=== PATIENT | male | born 1985 | race African-American/Black ===

== ENCOUNTER 2025-05-21 00:25 | Emergency (ER) | payer SELFPAY ==
[2025-05-21 00:53] VITALS: BP 96/62; PULSE 64; RESP 20; TEMP 36.8; O2SAT 98
[2025-05-21 03:20] VITALS: BP 124/80; PULSE 49; RESP 18; TEMP 36.6; O2SAT 97
--- NOTE | 2025-05-21 04:19 | ED.GENADULT ---
HPI - General Adult General Chief complaint: Skin/Abscess/Foreign Body Stated complaint: all over skin infection Time Seen by Provider: 05/21/25 04:11 History of Present Illness HPI narrative: Patient is a 39-year-old male who presents emergency department this morning complaining of a rash all over his body. States that he was diagnosed with folliculitis back in 2011 and was prescribed a medication that worked really well for him. States that this flare of folliculitis started approximately 2 weeks ago and he has seen his primary care physician, he has been on doxycycline and Bactrim and states that neither of them are helping and he is requesting the same medication he was prescribed in 2012. Per chart review, it was noted that patient was prescribed clindamycin in 2012 for his folliculitis. Patient is also HIV positive otherwise he denies any additional symptoms or concerns. Related Data Allergies Allergy/AdvReac Type Severity Reaction Status Date / Time No Known Allergies Allergy Mild Verified 05/21/25 00:56 Review of Systems Review of Systems: All systems are reviewed and are negative unless stated otherwise in the HPI. Exam Narrative: General: Alert, awake, afebrile, in no acute distress. HEENT: PERRL, no rhinorrhea, no post nasal drip, oropharynx clear. Neck: Trachea midline, no JVD, no lymphadenopathy. Cardiovascular: Regular rate and rhythm, no murmurs, rubs or gallops, no peripheral edema. Respiratory: Clear to auscultation bilaterally, no tachypnea, no wheezing, no rhonchi, no rubs, no respiratory distress. Abdomen: Soft, nontender, nondistended, no rebound, no guarding, no peritoneal signs. Musculoskeletal: No joint swelling or deformity, normal muscle tone. Skin: Nonspecific small bumps resembling folliculitis/ingrown hair follicles throughout patient has bilateral upper extremity, no evidence of cellulitis or infection. Psychiatric: Alert and oriented, normal behavior and judgment for situation. Neurological: Alert and oriented to person, place, and time. Follows all commands. No focal deficits, speech is clear and fluent. Course Vital Signs Vital signs: Vital Signs Temperature 98.2 F 05/21/25 00:53 Pulse Rate 64 05/21/25 00:53 Respiratory Rate 20 05/21/25 00:53 Blood Pressure 96/62 L 05/21/25 00:53 Pulse Oximetry 98 05/21/25 00:53 Oxygen Delivery Room Air 05/21/25 00:53 Temperature 97.8 F 05/21/25 03:20 Pulse Rate 49 L 05/21/25 03:20 Respiratory Rate 18 05/21/25 03:20 Blood Pressure 124/80 05/21/25 03:20 Pulse Oximetry 97 05/21/25 03:20 Oxygen Delivery Room Air 05/21/25 00:53 Medical Decision Making MDM Narrative Medical decision making narrative: The patient was evaluated by myself in the emergency department. History is obtained from patient who is an independent historian and physical exam was performed. External medical records were reviewed at this time. Patient is not want any workup just wants to be prescribed the same antibiotic he got in 2012. Differential diagnosis considerations include nonspecific rash, cellulitis, abscess, folliculitis. Comorbidities impacting this visit include none. I have evaluated and discussed social determinants of health with the patient that could potentially impact subsequent diagnosis and treatment plans. On repeat assessment of the patient, reevaluation revealed that the patient is doing well and is in no acute distress. Patient symptoms have remained stable since he arrived to our emergency department. Repeat vital signs were all reviewed and noted to be stable. Differential diagnosis and treatment plan were discussed with the patient at bedside. Patient agrees with discussion and after shared medical decision making agrees with discharge. All questions were answered to the patient's satisfaction. Patient will follow up with his PCP in 3-5 days. Patient was provided with strict return precautions and instructed to return to the emergency department if any new or worsening symptoms develop. The patient was discharged in stable condition. Vital Signs Vital Signs: Vital Signs Temperature 98.2 F 05/21/25 00:53 Pulse Rate 64 05/21/25 00:53 Respiratory Rate 20 05/21/25 00:53 Blood Pressure 96/62 L 05/21/25 00:53 Pulse Oximetry 98 05/21/25 00:53 Oxygen Delivery Room Air 05/21/25 00:53 Temperature 97.8 F 05/21/25 03:20 Pulse Rate 49 L 05/21/25 03:20 Respiratory Rate 18 05/21/25 03:20 Blood Pressure 124/80 05/21/25 03:20 Pulse Oximetry 97 05/21/25 03:20 Oxygen Delivery Room Air 05/21/25 00:53 Discharge Plan Discharge Clinical Impression: Folliculitis Patient Disposition: Home Condition: Improved Instructions: Antibiotic Form, Folliculitis (ED) Additional Instructions: Please follow-up with your family doctor within the next 3-5 days. Return to emergency department for new or worsening symptoms develop. Patient Language: French Prescriptions: New clindamycin HCl [Cleocin HCl] 150 mg capsule 450 mg PO Q8H 5 Days Qty: 45 0RF Follow-up/Referrals: PHYSICIAN,ROOM SERVICE SUPERVISOR [Primary Care Provider, Internal Medicine] Samina Hutton DO [Physician, Family Practice] - 3 Days Time of Disposition: 04:23
--- OUTSIDE RECORDS SUMMARY | 2025-05-21 04:39 | XMS_ITS | Encounter Summary ---
Author Organization [email or web address] Address [address] [place] [address] Care Team Providers Care Apparel Trimmings Sales Representative Name Role Phone Lester Robertson DO Primary Care Provider [phone]- [phone] Encounter Details Date Type Department Care Team (Late st Contact Info) Description 04/16/2017 Correspondence [facility] Radiology [address] [place] [address] [phone] Radiology, Provider MRI SAFETY SHEET AND COMPATIBILITY FORM Social History Tobacco Use Types Packs/Day Years Used Date Smoking Tobacco: Some Days Cigars Smokeless Tobacco: Never Comments:marajuana on and of f using cigars Alcohol Use Standard Drinks/Week Comments No 0 (1 standard drink = 0.6 oz pur e alcohol) Sex and Gender Information Value Date Recorded Sex Assigned at Not on file Legal Sex Male 4:45 AM CDT Gender Identity Not on file Sexual Orientation Not on file 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
--- OUTSIDE RECORDS SUMMARY | 2025-05-21 04:39 | XMS_ITS | Encounter Summary ---
Author Organization [facility] Address [address] [place] [address] Care Team Providers Care Research Executive Name Role Phone Lester Robertson DO Primary Care Provider [phone]- [phone] Encounter Details Date Type Department Care Team (Late st Contact Info) Description 06/02/2018 [facility] SITE MARKING DIAGRAM Social History Tobacco Use Types Packs/Day Years Used Date Smoking Tobacco: Some Days Cigars Smokeless Tobacco: Never Comments:no tobacco use, onl y marajuana on and off using cigars, Alcohol Use Standard Drinks/Week Comments Yes 1 (1 standard drink = 0.6 oz pur e alcohol) Sex and Gender Information Value Date Recorded Sex Assigned at Not on file Legal Sex Male 4:45 AM CDT Gender Identity Not on file Sexual Orientation Not on file 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 assistant Not on file Not on f ile Not on file documented as of this encounter Plan of Treatment Not on file documented as of this encounter Visit Diagnoses Not on filedocumented in this encounter Additional Health Concerns Infection Onset Date 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
--- OUTSIDE RECORDS SUMMARY | 2025-05-21 04:39 | XMS_ITS | Encounter Summary ---
Author Organization [facility] Address [address] [place] [address] Care Team Providers Care Japanese Tutor Name Role Phone iHralkarine Lester Karen US Primary Care Provider +1- [phone] Encounter Details Date Type Department Care Team (Late st Contact Info) Description 05/11/2025 Results [facility]Up [facility] [address] [facility]. [place], [place] [id number] Paul Batres MD [address] [place] [address] Social History Tobacco Use Types Packs/Day Years Used Date Smoking Tobacco: Some Days Cigars Smokeless Tobacco: Never Comments:no tobacco use, onl y marajuana on and off using cigars, Alcohol Use Standard Drinks/Week Comments Yes 1 (1 standard drink = 0.6 oz pur e alcohol) Humiliation, Afraid, Rape, and Kick questionnair e Answer Date Recorded Within the last year, have y ou been afraid of your partner or ex-partner? No 09/07/2024 Within the last year, have y ou been humiliated or emotionally abused in other ways by your partner or ex-partner? No Within the last year, have y ou been kicked, hit, slapped, or otherwise physically hurt by your partner or ex-partner? No 09/07/2024 Within the last year, have y ou been raped or forced to have any kind of sexual activity by your partner or ex-partner? 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
--- OUTSIDE RECORDS SUMMARY | 2025-05-21 04:39 | XMS_ITS | Clinical Summary ---
Author Organization [facility] Address [address] [place] [id number] Care Team Providers Care Laundry Room Attendant Name Role Phone Pcp, No Primary Care Provider Unavailabl e Allergies No known active allergies Medications emtricitab-ril pivirine-tenof ov (COMPLERA) 200-25-300 mg Take 1 tablet by mouth once daily. 6 Active acetaminophen (TYLENOL) 325 mg tabletIndicati ons:Perirectal abscess Take 1-2 tablets by mouth every 4 hours if needed (For mild pain.). Max acetaminophen dose: 4000mg in 24 hrs. 30 tablet 03/19/2016 1:41 PM CDT 6 Active doxycycline 100 mg tabletIndicati ons:Folliculit is Take 1 Tablet (100 mg) by mouth two times daily before meals. 14 Tablet 5 Active triamcinolone (ARISTOCORT; KENALOG) 0.1 % creamIndicatio ns:Rash Apply topically to affected area(s) three times daily for 7 days. 80 g 5 025 Active Problems Problem Noted Date Diagnosed Date Perianal abscess 06/02/2018 Overview (02/27/2020): Added automatically from request for surgery [id number] Hx of syphilis 08/08/2016 Overview (02/27/2020): 07/21/16 Titer 1:2, Treponema screen positive 08/08/16 Treated: 2.4mu Bicillin x 1 06/26/17 TPPA positive 02/14/20 Titer 1:4 Esperanza-rectal abscesses 03/09/2016 Overview (03/09/2016): Two on left. 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 03/2015: HRA with chemical destruction of internal lesions. 11/2015: Anal Pap showed ASCUS Recommend annual Anal pap. If progression from LGSIL, reschedule HRA. Human immunodeficiency virus (HIV) infection Encounters Date Type Department Care Team Description 05/01/2025 4:44 AM CDT - 05/01/2025 5:29 AM CDT Emergency [facility] [address] [place] [address] Lauren Moore MD Rash (Primary Dx) Discharge Disposition: Home Self Care 05/01/2025 Travel 04/11/2025 11:02 PM CDT - 04/11/2025 11:38 PM CDT Emergency [facility] [address] [place] [address] Kiel Davis DO Folliculitis (Primary Dx) Discharge Disposition: Home Self Care 04/11/2025 Travel from Last 3 Months Family History Medical History Relation Name Comments Cancer-breast Mother Relation Name Status Comments Mother Social History Tobacco Use Types Packs/Day Years Used Date Smoking Tobacco: Never Smokeless Tobacco: Never Alcohol Use Standard Drinks/Week Comments No 0 (1 standard drink = 0.6 oz pur e alcohol) Interpersonal Safety Answer Date Record ed Are you being hit, kicked, p ushed or yelled at (see row info)? No 05/01/2025 Interpersonal Safety Abuse 12 - 18 Not on file 05/01/2025 Interpersonal Safety Ambulatory Vulnerability No t on file 05/01/2025 Sex and Gender Information Value Date Recorded Sex Assigned at Not on file Legal Sex Male 6:21 AM FRENCH PASTRY COOK Gender Identity Not on file Sexual Orientation Not on file Last Filed Vital Signs Vital Sign Reading Time Taken Comments Blood Pressure 146/92 05/01/2025 4:56 AM CDT Pulse 52 05/01/2025 4:48 AM CDT Temperature 37.3 C (99.1 F) 05/01/2025 4:48 AM CDT Respiratory Rate 14 05/01/2025 4:48 AM CDT Oxygen Saturation 99% 05/01/2025 4:48 AM CDT Inhaled Oxygen Concentration - - Weight 90.7 kg (200 lb) 05/01/2025 4:48 AM CDT Height 170.2 cm (5' 7) 05/01/2025 4:48 AM CDT Body Mass Index 31.32 05/01/2025 4:48 AM CDT Plan of Treatment Health Maintenance Due Date Last Done Comments Tetanus booster 1997 Depression screening for age 12+ 1998 HIV for age 15-65 2001 BMI (ht and wt on same day) for age 18+ 2004 Hepatitis C screening for ag e 18-79 2004 Hepatitis B series for 19+ ( 1 of 3 - 19+ 3-dose series) 2005 HPV series for age 9-45 (1 - 3-dose SCDM series) 2013 Lipids for age 35-44 2021 COVID-19 vaccine series ( - season) 2025 Influenza Vaccine (#1) 2025 RSV vaccine for adults or (1 - 1-dose 75+ series) 2061 Pneumococcal series for age 6-49 Aged Out No longer eligible based on patient's age to complete this topic Procedures Procedure Name Priority Date/Time Associated Diagnosis Comments MPOX(ORTHOPOXVIRUS) , PCR (NON BLOOD) STAT 04/11/2025 11:27 PM CDT from Last 3 Months Results * MPOX(ORTHOPOXVIRUS), PCR (NON BLOOD) (04/11/2025 11:27 PM CDT) Orthopoxvirus DNA Not Detected Not Detected 04/15/2025 10:07 PM CDT [facility] Comment:Non-variola Orthopox virus DNA not detected by real-time PCR. Swab LESION SPECIMEN / Unknown Non-Blood / Unknown 04/11/2025 11:27 PM CDT 04/11/2025 11:30 PM CDT Narrative [facility] - 04/15/2025 10:07 PM CDT Performed at: 01 - [facility] [address] [place] [address] [id number] Cross Roller: Ronal Sanabria MD, Phone: [phone] us Kiel Davis DO SEND OUTS Final Resul t [facility] ([facility]) [address] [place] [id number], from Last 3 Months Advance Directives * Full Code (Latest Code Status on File) Date Activated Date Inactivated Comments 03/09/2016 8:55 AM 03/12/2016 7:05 PM * Full Code Date Activated Date Inactivated Comments 03/09/2016 8:54 AM 03/09/2016 8:55 AM * Full Code Date Activated Date Inactivated Comments 03/09/2016 6:04 AM 03/09/2016 8:54 AM Care Teams Laundry Room Attendant Relationship Specialty Start Date End Date Pcp, No . PCP - General 01/16/21
--- OUTSIDE RECORDS SUMMARY | 2025-05-21 04:39 | XMS_ITS | Encounter Summary ---
Author Organization [facility] Address [address] [place] [address] Care Team Providers Care Core Extruder Name Role Phone Lester Robertson DO Primary Care Provider +1- [phone] Encounter Details Date Type Department Care Team (Late st Contact Info) Description 06/02/2018 Consent for Procedure/Treatme nt [facility] INFORMED CONSENT RECORD Social History Tobacco Use Types Packs/Day Years Used Date Smoking Tobacco: Some Days Cigars Smokeless Tobacco: Never Comments:no tobacco use, onl y marajuana on and off using cigars, Alcohol Use Standard Drinks/Week Comments No 0 (1 standard drink = 0.6 oz pur e alcohol) Sex and Gender Information Value Date Recorded Sex Assigned at Not on file Legal Sex Male 4:45 AM CDT Gender Identity Not on file Sexual Orientation Not on file 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
--- OUTSIDE RECORDS SUMMARY | 2025-05-21 04:39 | XMS_ITS | Clinical Summary ---
Author Organization [facility] Address [address] [place] [address] Care Team Providers Care Paper Reeler Name Role Phone DanyLester olmedo Karen US Primary Care Provider [phone] Source Comments You are receiving this document as you are listed as the primary care provider,follow-up provider, or the patient has been referred to you for consultation.This is in compliance with the Medicare andMedicaid EHR Incentive Program,which states Providers who transition their patient to another setting of careor provider of care or refers their patient to another provider of care shouldprovide summary care record for each transition of care or referral. [facility] Allergies No known active allergies Medications medical cannabis patient certifiedIndic ations:Medical marijuana use Take as instructed .. Active emtricitab-ril pivir-tenofov AF (ODEFSEY) 200-25-25 MG tablet TAKE 1 TABLET BY MOUTH EVERY DAY 90 Tablet 1 12/23/19 25 Active doxycycline hyclate (VIBRA-TABS) 100 MG tablet Take 1 Tablet (100 mg) by mouth two times a day. Active amoxicillin (AMOXIL) 500 MG capsule Take 1 Capsule (500 mg) by mouth three times a day. 04/20/20 25 Active sulfamethoxazo le-trimethopri m (BACTRIM DS) 800-160 MG tabletIndicati ons:Folliculit is Take 1 Tablet by mouth two times a day for 14 days. 28 Tablet 05/18/20 25 025 Discontinued sulfamethoxazo le-trimethopri m (BACTRIM DS) 800-160 MG tabletIndicati ons:Folliculit is Take 1 Tablet by mouth two times a day for 14 days. 28 Tablet 05/18/20 25 025 Discontinued Hospital, Clinic, or Other Facility Administered Medication Ordered Dose Route Frequency Start Date End Date Status fluticasone propionate (FLONASE) 50 MCG/ACT nasal spray 2 SprayIndications:Post- nasal drip 2 [place] Both Nostril DAILY 11/12/2022 Active Active Problems Problem Noted Date Diagnosed Date Perianal abscess 06/02/2018 Overview (06/02/2018): Added automatically from request for surgery [id number] CAREPLAN: HIV 10/23/2016 Overview (10/11/2024): If you have any questions or concerns please contact: Molder Feeder: LUCITA Silva MA PCP: Estela Goodrich PA-C ID Provider: Dr. Marbin MD [facility] CLIENT NAME: Yolanda Israel SERVICE PLAN PERIOD: September 2024 - March 2025 - September 2025 Care Coordination (Community Resources, Specialists, Home Health Agency, Caregiver, Supply Vendor, Molder Feeder) Contact Name KRYSTIN Obtained? Phone Number Role in Care Krystle LANDRUM MA Internal [phone] Circulation Representative Program 10/11/2024 Community Service provider [place] 10/11/2024 Pharmacy Saulo Israel 10/11/2024 Emergency Contact/Uncle - NOT AWARE OF STATUS Identify All Barriers/Needs below: [] [] Living Situation [] Mental Health [] Chemical Health [x] Health Insurance/Benefits [] Transportation [] Health Literacy/Medication adherence [] Incarceration [] HIV Disease Progression/Declining health [] Cultural/Language/literacy barriers [] New to city/state [] Newly diagnosed/HIV Knowledge/Sexual Health [] Nutritional Needs [] Re-engaging into Medical Care/Adherence to Appointments [x] Medical Care [] Financial/Legal Issues [] Domestic violence [] Support- emotional/social [] Housing [] Immigration needs [] Education/Employment [] Other: Barrier/Need: Process/steps to resolve the identified issues: Timeframe to accomplish Person(s) responsible for taking action. Outcome of the actions taken and/or Completion Date Medical Care To maintain a viral load of <30 and CD4 Count over 200 by taking medications daily as prescribed; along with attending all medical appointments as scheduled. nursing support worker will assist patient with reminder calls of appointments, making sure patient has transportation to appointment and scheduling follow up appointments to make sure patient is staying in medical care. Ongoing; Patient and Molder Feeder Patient reports no concerns at this time. Will repeat labs in a month Health Insurance/Benefits To maintain health insurance. nursing support worker and patient will utilize benefits counseling as needed for any insurance counseling questions. Ongoing; Patient and Molder Feeder Patient reports no concerns at this time. Employment To obtain/maintain stable employment Patient Patient reports no concerns at this time. I have reviewed the needs and actions/goals discussed today with my service provider. Client Signature Date Collections Director Signature Date The adoption social worker will meet with the patient in 6 months to check in on progress of the goals. ----- Reassessment Review: I have reviewed the needs and actions/goals discussed today with my service provider. 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 HRA 03/30/2015 with chemical destruction of internal lesions. Anal Pap 11/30/15: ASCUS, Recommend annual Anal pap. If progression from LGSIL, reschedule HRA. HIV disease 03/30/2014 Overview (06/07/2015): Epic Encounters Date Type Department Care Team Description 05/18/2025 9:20 AM CDT Telemedicine [address] [address] Lester Robertson, Folliculitis (Primary Dx) 05/12/2025 Social Work Infectious Disease at [address] [place] [address] Varun Solano LSW 05/11/2025 10:00 AM CDT Nursing Visit [facility] [place] [address] [facility] Hand Surgery [address] [place] [address]. [place] [address] Encounter for postoperative wound check (Primary Dx) 05/11/2025 Results Follow-Up [place] [address] [facility] Surgery [address] [place] [address]. [place] [address] Paul Batres MD 05/04/2025 Social Work Infectious Disease at [address] [place] [address] Varun Solano LSW 05/02/2025 1:00 PM CDT Office Visit [facility] Hand Surgery [address] [place] [address] Paul Batres MD Tick bite of left knee, initial encounter (Primary Dx) 05/02/2025 Telephone Infectious Disease at [facility] [address] [place] [address] Lester Robertson, DO SKIN PROBLEM 05/01/2025 8:30 AM CDT Ancillary Procedure [facility] Ultrasound [address] [place] [address] Paul Batres MD Tick bite of left knee, initial encounter 05/01/2025 Results Follow-Up [facility] Plastic & Hand Surgery [address] [place] [address] Paul Batres MD 04/19/2025 Social Work Infectious Disease at [facility] [address] [place] [address] Varun Solano LSW 04/18/2025 2:40 PM CDT Office Visit [facility] [address] Pl[facility] Hand Surgery [address] [place] [address] Paul Batres MD Tick bite of left knee, initial encounter (Primary Dx) 04/14/2025 Social Work Infectious Disease at [facility] [address] [place] [address] Varun Solano, MAINSPRING STRIP INSPECTOR 04/12/2025 4:45 PM CDT Ancillary Procedure [facility] Ultrasound [address] [place] [address] [place] [id number] Lester Robertson, DO Soft tissue mass 04/06/2025 Results Follow-Up [address] [place] [address] Lester Robertson, 04/05/2025 3:30 PM CDT Lab Visit [facility] [address] [facility] [place] [address] HIV disease (HRC); Syphilis (HRC); Exposure to communicable diseases 04/05/2025 2:30 PM CDT Social Work Infectious Disease at [address] [place] [address] Varun Solano, LUCITA 04/05/2025 2:00 PM CDT Office Visit Infectious Disease at [address] [place] [address] Lester Robertson, Routine health maintenance (Primary Dx); HIV disease (HRC); Exposure to communicable diseases; Syphilis (HRC); LGSIL Pap smear of anus; Perianal abscess; Soft tissue mass 04/05/2025 Social Work Infectious Disease at [address] [place] [address] Varun Solano LSW 04/05/2025 Results Follow-Up [facility] [address] [place] [address] Frank Dias PA-C 04/04/2025 Social Work Infectious Disease at [address] [place] [address] Varun Solano, LUCITA 04/03/2025 8:20 PM CDT Ancillary Procedure [facility] Radiology [address] [place] [address] Deonna Lainez MD Tick bite of left lower leg, initial encounter 04/03/2025 7:30 PM CDT Lab Visit [facility] [address] [place] [address] Tick bite of left lower leg, initial encounter 04/03/2025 6:40 PM CDT Office Visit [facility] [address] [place] [address] Deonna Lainez MD Tick bite of left lower leg, subsequent encounter (Primary Dx) 03/23/2025 Telephone Dental Call Center Unassigned, Provider Other (ERRONEOUS ENTRY) 03/23/2025 Telephone [facility] [place] [address] [place] [address] Unknown, Physician Insurance Concerns 03/23/2025 Social Work Infectious Disease at [address] [place] [address] Varun Solano LSW 03/23/2025 Telephone Infectious Disease at [address] [place] [address] Varun Solano LSW Insurance Concerns; Appointment 03/21/2025 Telephone Infectious Disease at [address] [place] [address] Xochitl Zazueta MD 03/21/2025 Telephone Infectious Disease at [address] [place] [address] Xochitl Zazueta MD Appt. Needed 03/21/2025 Social Work Infectious Disease at [address] [place] [address] Varun Solano LSW 03/03/2025 Social Work Infectious Disease at [address] [place] [address] Varun Solano LSW from Last 3 Months Immunizations Immunization Administration Dates Next Due DTP 09/10/1992, 2,01/02/1991,1989,09/12/1989,07/11/1989 HepA-HepB ([place], 18+ yrs) 04/10/2015,11/17/19 15,10/19/2014 HepB Adolescent/High Risk 12/08/2000,09/07,08/25/2000 Hib, Unspecified Formulation 12/22/1990 Influenza IIV4 (Quadrivalent ) 0.5mL (02010) 11/30/2015,05/25/2014 MMR 09/10/1992,07/11/1989 PCV13 (Prevnar) 10/19/2014 PPSV23 (Pneumovax) 01/11/2015 Polio, Unspecified Formulation 3,01/02/1991,12/12/1989,1989,07/11/1989 Positive Hepatitis A Titer 10/22/2016 TB Skin Test (PPD) 08/14/2014 Tdap 05/07/2015,08/25/2000 Family History Medical History Relation Name Comments Cancer, Breast Mother Relation Name Status Comments Father Alive Mother Alive Brother 1 Alive Brother 2 Alive Maternal Grandfather (Age 92) Maternal Grandmother (Age 51) Paternal Grandfather (Age 75) Paternal Grandmother Alive Sister 1 Alive Sister 2 Alive Son Alive Social History Tobacco Use Types Packs/Day Years [...] 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 Not on file 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 Not on file Not on f ile Not on file Last Filed Vital Signs Vital Sign Reading Time Taken Comments Blood Pressure 108/57 04/05/2025 1:59 PM CDT Pulse 65 04/05/2025 1:59 PM CDT Temperature 36.2 C (97.1 F) 04/03/2025 7:40 PM CDT Respiratory Rate 20 04/03/2025 7:40 PM CDT Oxygen Saturation 98% 04/03/2025 7:40 PM CDT Inhaled Oxygen Concentration - - Weight 87.7 kg (193 lb 5.5 oz) 04/05/2025 1:59 P M CDT Height 170.2 cm (5' 7) 07/06/2020 3:09 PM CDT Body Mass Index 30.28 07/06/2020 3:09 PM CDT Plan of Treatment Health Maintenance Due Date Last Done Comments MCV4 Vaccine (1 - Risk 2-dose series) 1988 COVID-19 Vaccine (#1) 1991 Zoster/Shingles Vaccine (1 of 2) 2005 HPV Vaccine (1 - Risk 3-dose SCDM series) 2013 Pneumococcal Vaccine (2 of 2 - PPSV23, PCV20, or PCV21) 10/19/2015 01/11/2015, 10/19/2014 DTaP/Tdap/Td Vaccine (8 - Tdap) 05/07/2025 05/07/2015, 08/25/2000, 09/10/1992, Additional history exists Influenza Vaccine (#1) 2025 11/30/2015, 2013 Chlamydia 04/05/2026 04/05/2025, 03/09, 04/05/2025, Additional history exists Adult Preventive Visit 04/05/2027 04/05/2025 Hib Vaccine Completed 12/22/1990 IPV (Polio) Vaccine Completed 09/10/1992, 01/02/1991, 12/12/1989, Additional history exists HepB Vaccine Completed 04/10/2015, 11/05, 10/19/2014, Additional history exists Cholesterol Discontinued 04/05/2025, 05/08, 01/14/2022, Additional history exists HIV Screening (Preventive Services) Completed 04/05/2025, 04/05/2025, 04/05/2025, Additional history exists Meningococcal B Vaccine Aged Out No l onger eligible based on patient's age to complete this topic Procedures Procedure Name Priority Date/Time Associated Diagnosis Comments SURGICAL PATHOLOGY Routine 05/02/2025 2: 20 PM CDT Tick bite of left knee, initial encounter US LOWER EXTREMITY LT SOFT TISSUE Routine 05/01/2025 8:51 AM CDT Tick bite of left knee, initial encounter US UPPER EXTREMITY LT SOFT TISSUE Routine 04/12/2025 5:06 PM CDT Soft tissue mass RPR TITER Routine 04/05/2025 3:26 PM CDT HIV disease (HRC) Syphilis (HRC) CHLAMYDIA & GC (14 YEARS & OLDER) Routine 04/05/2025 3:26 PM CDT Exposure to communicable diseases CHLAMYDIA & GC (14 YEARS & OLDER) Routine 04/05/2025 3:26 PM CDT Exposure to communicable diseases RPR WITH REFLEX TO TITER Routine 04/05/2025 3:26 PM CDT HIV disease (HRC) Syphilis (HRC) CHLAMYDIA & GC, URINE (14 YEARS AND OLDER) Routine 04/05/2025 3:26 PM CDT HIV disease (HRC) HIV-1 RNA QUANT Routine 04/05/2025 3:26 PM CDT HIV disease (HRC) LIPID PANEL & DIRECT LDL (IF NEEDED) Routine 04/05/2025 3:26 PM CDT HIV disease (HRC) URINALYSIS ROUTINE, MICRO/CULTURE IF POS Routine 04/05/2025 3:26 PM CDT HIV disease (HRC) COMPREHENSIVE METABOLIC PANEL Routine 04/05/2025 3:26 PM CDT HIV disease (HRC) TICKBORNE DISEASE PANEL BY PCR Routine 04/03/2025 8:25 PM CDT Tick bite of left lower leg, initial encounter LYME ANTIBODY (REFLEX TO LYME CONFIRMATORY PANEL) Routine 04/03/2025 8:25 PM CDT Tick bite of left lower leg, initial encounter COMPLETE BLOOD COUNT-W/DIFF STAT 04/03/2025 8:25 PM CDT Tick bite of left lower leg, initial encounter CBC AND DIFFERENTIAL PANEL STAT 04/03/2025 8:25 PM CDT Tick bite of left lower leg, initial encounter XR KNEE LT 2 VIEWS STAT 04/03/2025 8: 23 PM CDT Tick bite of left lower leg, initial encounter from Last 3 Months Results * Surgical Path (05/02/2025 2:20 PM CDT) Case Report Surgical Pathology Case: [id number] Authorizing Provider: Paul Batres MD Collected: 05/02/2025 1420 Ordering Location: [facility] Received: 05/02/2025 4[facility] Plastic [facility] Hand Surgery Pathologist: Isai Puckett MD Specimen: Leg, left, left lower leg, eval for foreign object 05/11/2025 9:34 AM [facility] FINAL DIAGNOSIS A. Skin, Leg, left, left lower leg, eval for foreign object, excisional biopsy: Dense perivascular and nodular lymphocytic inflammation with plasma cells and abundant eosinophils (see microscopic description and comment) Comment: The changes extend to the peripheral margins and to the deep margin in areas. The findings are compatible with a vigorous persistent arthropod bite reaction. No diagnostic arthropod mouth parts or foreign body material are identified on examination of multiple prepared slides including deeper recut sections. 05/11/2025 9:34 AM [facility] at 0934 CDT Clinical Information Eval for foreign object left lower leg, previous tick bite 05/11/2025 9:34 AM [facility] Microscopic Description Microscopic examination is performed. There is an excisional biopsy consisting of epidermis, dermis, and subcutis. Centrally, there is epidermal disruption with overlying seroinflammatory crust. The adjacent epidermis is reactive and hyperplastic with some overlying compact parakeratosis and compact hyperkeratosis. The dermis and subcutis are notable for dense perivascular and broad nodular areas of reactive lymphocytic inflammation with germinal center formation, admixed with plasma cells and abundant eosinophils. The inflammation is also interstitial in areas. There is an area of necrosis and basophilic granular debris with serum within the inflammation in the mid dermis. 05/11/2025 9:34 AM [facility] Gross Description A: The specimen is received in formalin and labeled with the patient's name and Leg, left, left lower leg, eval for foreign object. The specimen consists of a 1.9 x 0.8 cm mckeon-brown skin ellipse is excised to a depth of 1.1 cm. The skin surface exhibits a 0.2 x 0.2 cm mckeon-brown, slightly raised (less than 0.1 cm) lesion on the surface. The lesion comes within 0.3 cm of the nearest skin edge and 0.6 cm of the nearest tip. Adjacent to the lesion (0.3 cm) there is a additional 0.3 x 0.2 cm pink-mckeon, smooth, glistening flat scar-like lesion the surface. The lesion comes within 0.2 cm of the nearest skin edge and 0.5 cm of the nearest tip. No foreign body is grossly identified. The specimen is inked black, serially sectioned and entirely submitted in 4 cassettes. 1. Ellipse tips 2-4. Serial sections of remaining specimen. 05/11/2025 9:34 AM [facility] Embedded Images 05/11/2025 9:34 AM [facility] Tissue SKIN OF KNEE AND/OR LEG AND/OR ANKLE / Unknown Non-blood Collection / Unknown 05/02/2025 2:20 PM CDT 05/02/2025 3:09 PM CDT Comment:per standing order us Paul Batres MD LAB PATHOLOGY Final Resu lt [facility] CLIA: [id number] [address] [place] [address] * US Lower Extremity Lt Soft Tissue (05/01/2025 8:51 AM CDT) Anatomical Region Laterality Modality Lower Extremity Ultrasound 05/01/2025 8:51 AM CDT Narrative 05/01/2025 9:25 AM CDT EXAM: US LOWER EXTREMITY LT SOFT TISSUE LOCATION: [facility] DATE: 05/01/2025 INDICATION: Left proximal medial calf lesion - evaluate for foreign body, Insect bite (nonvenomous), left knee, in, Bitten or stung by nonvenomous insect an COMPARISON: None. TECHNIQUE: Focused ultrasound imaging of the area of interest in the medial left knee. FINDINGS: Within the subcutaneous tissues of the area of interest, there is an area of focal edema with mild increased echogenicity of the subcutaneous fat and mild hyperemia. No discrete drainable fluid collection to suggest abscess. No retained foreign body seen. IMPRESSION: 1. Focal subcutaneous edema and mild hyperemia in the area of interest suggesting superficial soft tissue infection. No drainable collection to suggest abscess. 2. No retained foreign body is seen. Procedure Note Shaheen Elizabeth MD - 05/01/2025 EXAM: US LOWER EXTREMITY LT SOFT TISSUE LOCATION: [facility] DATE: 05/01/2025 INDICATION: Left proximal medial calf lesion - evaluate for foreign body,Insect bite (nonvenomous), left knee, in, Bitten or stung by nonvenomousinsect an COMPARISON: None. TECHNIQUE: Focused ultrasound imaging of the area of interest in themedial left knee. FINDINGS: Within the subcutaneous tissues of the area of interest, thereis an area of focal edema with mild increased echogenicity of thesubcutaneous fat and mild hyperemia. No discrete drainable fluidcollection to suggest abscess. No retained foreign body seen. IMPRESSION: 1. Focal subcutaneous edema and mild hyperemia in the area of interestsuggesting superficial soft tissue infection. No drainable collection tosuggest abscess. 2. No retained foreign body is seen. us Paul Batres MD RAD US Final Resu lt * US Upper Extremity Lt Soft Tissue (04/12/2025 5:06 PM CDT) Anatomical Region Laterality Modality Upper Extremity Ultrasound 04/12/2025 5:06 PM CDT Narrative 04/13/2025 12:42 PM CDT EXAM: US UPPER EXTREMITY LT SOFT TISSUE LOCATION: [facility] DATE: 04/12/2025 INDICATION: Soft tissue nodule on left arm near axilla, Other specified soft tissue disorders COMPARISON: None. TECHNIQUE: Routine. FINDINGS/IMPRESSION: Corresponding to the palpable lump is an ovoid isoechoic mass measuring 2.7 x 2.5 x 0.6 cm suggestive of a lipoma. Procedure Note Klaus Enriquez MD - 04/13/2025 EXAM: US UPPER EXTREMITY LT SOFT TISSUE LOCATION: [facility] DATE: 04/12/2025 INDICATION: Soft tissue nodule on left arm near axilla, Other specifiedsoft tissue disorders COMPARISON: None. TECHNIQUE: Routine. FINDINGS/IMPRESSION: Corresponding to the palpable lump is an ovoidisoechoic mass measuring 2.7 x 2.5 x 0.6 cm suggestive of a lipoma. Lester Robertson DO RAD US Final Resu lt * (ABNORMAL) HIV-1 RNA Quant by TMA (04/05/2025 3:26 PM CDT) Pathologist [facility] HIV Interp Detected( A) Not Detected 04/07/2025 1:17 PM CDT [facility] HIV Copies per/ml <30 Not Detected copies/mL 04/07/2025 1:17 PM CDT [facility] HIV Log Copies/ml <1.47 Not Detected log copies/mL 04/07/2025 1:17 PM CDT [facility] Blood Venipuncture / Unknown 04/05/2025 3:26 PM CDT 04/05/2025 3:26 PM CDT Narrative [facility] - 04/07/2025 1:17 PM CDT Testing was performed using the Aptima HIV Quant Dx Assay (Inmagicher System) The quantitative range of this assay is 30-10,000,000 copies/mL (1.47-7.00 log copies/mL) us Lester Robertson DO LAB_1 Final Resu lt [facility] [address] * (ABNORMAL) RPR Titer (04/05/2025 3:26 PM CDT) RPR Titer 1:1(H) <1:1 04/07/2025 1:17 AM CDT [employer] Comment: Performed By: [facility] [address] [place] [address] Job Tracer: Abebe Pack MD, PhD CLIA Number: [id number] Blood Venipuncture / Unknown 04/05/2025 3:26 PM CDT 04/05/2025 3:26 PM CDT Lester Robertson DO LAB_1 Final Resu lt Performing Organization Address [facility] [[email or web address]] de Phone Number [id number] [place] [address] * (ABNORMAL) RPR with Reflex to Titer (04/05/2025 3:26 PM CDT) Pathologist [facility] RAPID PLASMA REAGIN (RPR) Reactive( A) Non Reactive 04/06/2025 7:32 PM CDT [employer] Comment: Performed By: [facility] [address] [place] [address] Job Tracer: Abebe Pack MD, PhD CLIA Number: [id number] Blood Venipuncture / Unknown 04/05/2025 3:26 PM CDT 04/05/2025 3:26 PM CDT Lester Robertson DO LAB_1 Final Resu lt Performing Organization Address [email or web address] [place] [address] * (ABNORMAL) Urinalysis Routine, Micro/Culture if Pos: Clean Catch (04/05/2025 3:26 PM CDT) Pathologist [facility] Urine Microscopic Evaluation Reflex Order Comment Urinalysis results do not meet criteria for urine microscopic evaluation reflex. 04/05/2025 4:11 PM CDT [facility] Color Yellow 04/05/2025 4:11 PM CDT [facility] Clarity Clear Clear 04/05/2025 4:11 PM CDT [facility] Specific [place] >=1.030(A) 1.005 - 1.030 04/05/2025 4:11 PM CDT [facility] pH 6.0 5.0 - 8.0 04/05/2025 4:11 PM CDT [facility] Protein Trace Neg/Trace mg/dL 04/05/2025 4:11 PM CDT [facility] Glucose Negative Negative mg/dL 04/05/2025 4:11 PM CDT [facility] Ketones Trace(A) Negative mg/dL 04/05/2025 4:11 PM CDT [facility] Urobilinogen 1.0 <2.0 EU/dL 04/05/2025 4:11 PM CDT [facility] Bilirubin Small(A) Negative 04/05/2025 4:11 PM CDT [facility] Blood Negative Neg/Trace 04/05/2025 4:11 PM CDT [facility] Nitrite Negative Negative 04/05/2025 4:11 PM CDT [facility] Leukocyte Esterase Negative Negative 04/05/2025 4:11 PM CDT [facility] Source Clean Catch 04/05/2025 4:11 PM CDT [facility] Urine URINE SPECIMEN COLLECTION, CLEAN CATCH / Unknown Non-blood Collection / Unknown 04/05/2025 3:26 PM CDT 04/05/2025 3:26 PM CDT Lester Robertson DO LAB_1 Final Resu lt [facility] [address] [place] [address], [facility] * Chlamydia & GC, Urine (14 Years and Older) (04/05/2025 3:26 PM CDT) Chlamydia Trachomatis STD Not Detected Not Detected 04/05/2025 10:57 PM CDT [facility] N. gonorrhoeae STD Not Detected Not Detected 04/05/2025 10:57 PM CDT [facility] Urine STD Non-blood Collection / Unknown 04/05/2025 3:26 PM CDT 04/05/2025 4:09 PM CDT Narrative [facility] - 04/05/2025 10:57 PM CDT Test performed by Assembly Machine Set Up Mechanic Mediated Amplification (TMA). Lester Robertson DO LAB_1 Final Resu lt Performing Organization Address [facility] [[email or web address]] de Phone Number [facility] [address] * Lipid Panel & Direct LDL (if Needed) (04/05/2025 3:26 PM CDT) Cholesterol 186 0 - 199 mg/dL 04/05/2025 6:58 PM CDT [facility] Triglyceride 44 <=149 mg/dL 04/05/2025 6:58 PM CDT [facility] HDL Cholesterol 58 >=40 mg/dL 04/05/2025 6:58 PM CDT [facility] LDL, Calculated 119 <130 mg/dL 04/05/2025 6:58 PM CDT [facility] Non HDL Chol, Calculated 128 <=159 mg/dL 04/05/2025 6:58 PM CDT [facility] Cholesterol/HDL Ratio 3.2 <=5.0 04/05/2025 6:58 PM CDT [facility] Hours Fasting 6.0 8 - 12 Hours 04/05/2025 6:58 PM CDT [facility] Blood Venipuncture / Unknown 04/05/2025 3:26 PM CDT 04/05/2025 3:26 PM CDT Lester Robertson DO LAB_1 Final Resu lt Performing Organization Address [facility] Co de Phone Number [facility] [address] [facility] [address] [place] [address] * Chlamydia & GC (14 Years and Older): Self-collected rectum (04/05/2025 3:26 PM CDT) Only the most recent of2 resultswithin the time period is included. Chlamydia Trachomatis STD Not Detected Not Detected 04/05/2025 10:57 PM CDT [facility] N. gonorrhoeae STD Not Detected Not Detected 04/05/2025 10:57 PM T [facility] Swab STD (Self-collected rectum) Non-blood Collection / Unknown 04/05/2025 3:26 PM CDT 04/05/2025 3:26 PM CDT Narrative [facility] - 04/05/2025 10:57 PM CDT Test performed by Assembly Machine Set Up Mechanic Mediated Amplification (TMA). us Lester Robertson DO LAB_1 Final Resu lt [facility] [address] * (ABNORMAL) Comprehensive Metabolic Panel (04/05/2025 3:26 PM CDT) Sodium 141 136 - 145 mmol/L 04/05/2025 6:58 PM [facility] Potassium 3.8 3.5 - 5.1 mmol/L 04/05/2025 6:58 PM [facility] Chloride 106 98 - 109 mmol/L 04/05/2025 6:58 PM [facility] CO2 25 20 - 29 mmol/L 04/05/2025 6:58 PM [facility] Anion Gap 10 6 - 16 mmol/L 04/05/2025 6:58 PM [facility] Calcium 8.8 8.4 - 10.4 mg/dL 04/05/2025 6:58 PM [facility] BUN 14 7 - 26 mg/dL 04/05/2025 6:58 PM [facility] Creatinine 1.10 0.73 - 1.18 mg/dL 04/05/2025 6:58 PM [facility] Alkaline Phosphatase 62 40 - 150 U/L 04/05/2025 6:58 PM [facility] AST (SGOT) 116(H) 16 - 46 U/L 04/05/2025 6:58 PM [facility] ALT (SGPT) 45 0 - 55 U/L 04/05/2025 6:58 PM CDT [facility] Bilirubin, Total 0.5 0.2 - 1.2 mg/dL 04/05/2025 6:58 PM CDT [facility] Protein, Total 7.8 6.4 - 8.3 g/dL 04/05/2025 6:58 PM CDT [facility] Albumin 4.2 3.5 - 5.0 g/dL 04/05/2025 6:58 PM CDT [facility] Glucose 71 70 - 100 mg/dL 04/05/2025 6:58 PM CDT [facility] Comment:The given reference range is for the fasting state. Non-fasting reference range for glucose is 70 - 180 mg/dL. GFR, Estimated >60 >60 mL/min/1. 73m2 04/05/2025 6:58 PM CDT [facility] Hours Fasting 6.0 8 - 12 Hours 04/05/2025 6:58 PM CDT [facility] Blood Venipuncture / Unknown 04/05/2025 3:26 PM CDT 04/05/2025 3:26 PM CDT us Lester Robertson DO LAB_1 Final Resu lt [facility] [address] [facility] [address] [place] [address] * Tickborne Disease Panel by PCR (04/03/2025 8:25 PM CDT) Anaplasma Phagocytophilum Not Detected Not Detected 04/05/2025 1:11 PM CDT [facility] Ehrlicia Species Not Detected Not Detected 04/05/2025 1:11 PM CDT [facility] Babesia Species Not Detected Not Detected 04/05/2025 1:11 PM CDT [facility] Blood VENOUS BLOOD SPECIMEN / Unknown Venipuncture / Unknown 04/03/2025 8:25 PM CDT 04/03/2025 8:25 PM CDT Narrative [facility] - 04/05/2025 1:11 PM CDT Test performed by real-time PCR. This test was developed, and its performance characteristics determined by [facility]. It has not been cleared or approved by the [place] Food and Drug Administration. us Deonna Lainez MD LAB_1 Final Result [facility] [address] [place] [address], [facility] * (ABNORMAL) Complete Blood Count-W/Diff (04/03/2025 8:25 PM CDT) [facility] WBC 5.0 3.5 - 10.5 x10(9)/L 04/03/2025 8:34 PM CDT [facility] RBC 4.55 4.32 - 5.72 x10(12)/L 04/03/2025 8:34 PM CDT [facility] Hemoglobin 13.1(L) 13.5 - 17.5 g/dL 04/03/2025 8:34 PM CDT [facility] HCT 40.4 38.8 - 50.0 % 04/03/2025 8:34 PM CDT [facility] MCV 88.8 80.0 - 100.0 fL 04/03/2025 8:34 PM CDT [facility] MCH 28.8 27.6 - 33.3 pg 04/03/2025 8:34 PM CDT [facility] MCHC 32.4 31.5 - 35.2 g/dL 04/03/2025 8:34 PM CDT [facility] RDW 11.7(L) 11.9 - 15.5 % 04/03/2025 8:34 PM CDT [facility] Platelets 226 150 - 450 x10(9)/L 04/03/2025 8:34 PM CDT [facility] Neutrophil Absolute 2.2 1.7 - 7.0 10(9)/L 04/03/2025 8:34 PM CDT [facility] Lymphocyte Absolute 2.2 1.0 - 4.8 10(9)/L 04/03/2025 8:34 PM CDT [facility] Monocyte Absolute 0.5 0.2 - 0.9 10(9)/L 04/03/2025 8:34 PM CDT [facility] Eosinophil Absolute 0.1 0.0 - 0.5 10(9)/L 04/03/2025 8:34 PM CDT [facility] Basophil Absolute 0.0 0.0 - 0.3 10(9)/L 04/03/2025 8:34 PM CDT [facility] Immature Granulocyte % 0.0 0.0 - 0.5 % 04/03/2025 8:34 PM CDT [facility] Blood Venipuncture / Unknown 04/03/2025 8:25 PM CDT 04/03/2025 8:25 PM CDT us Deonna Lainez MD LAB_1 Final Result Performing Organization Address [facility] Co de Phone Number [facility] [address] [place] [address] * Lyme Antibody (Reflex to Lyme Confirmatory Panel) (04/03/2025 8:25 PM CDT) [facility] Lyme Disease Serology Negative Negative 04/05/2025 9:09 AM CDT [facility] Comment:The magnitude of the measured result, above the cutoff, is not indicative of the amount of antibody present. Blood Venipuncture / Unknown 04/03/2025 8:25 PM CDT 04/03/2025 8:25 PM CDT us Deonna Lainez MD LAB_1 Final Result Performing Organization Address [facility] Co de Phone Number [facility] [address] [place] [id number] * XR Knee Lt 2 Views (04/03/2025 8:23 PM CDT) Anatomical Region Laterality Modality Lower Extremity, Knee Computed R adiography 04/03/2025 8:23 PM CDT Narrative 04/03/2025 9:01 PM CDT EXAM: XR KNEE LT 2 VIEWS LOCATION: [facility] DATE: 04/03/2025 INDICATION: Pain. COMPARISON: None. IMPRESSION: Normal joint spaces and alignment. No fracture or joint effusion. Procedure Note Christen White MD - 04/03/2025 EXAM: XR KNEE LT 2 VIEWS LOCATION: [facility] DATE: 04/03/2025 INDICATION: Pain. COMPARISON: None. IMPRESSION: Normal joint spaces and alignment. No fracture or jointeffusion. 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 Insurance [facility] Member Subscriber Plan / Payer (Ef fective 2019-Present) Name:Yolanda Israel Relation to Subscriber:Self Name:Yolanda Israel Payer ID:[id number] Group ID:Not on file Type:Government Address: INFECTIOUS DISEASE HIV DEPT [address] [place] [id number] [place] [address] LIMITED BENEFIT [facility] MEDICAID DENTAL Advance Directives * Full Code (Latest Code Status on File) Date Activated Date Inactivated Comments 07/06/2020 3:17 PM 07/09/2020 4:17 PM * Full Code Date Activated Date Inactivated Comments 06/03/2018 2:24 AM 06/03/2018 4:16 PM Care Teams Paper Reeler Relationship Specialty Start Date End Date Lester Robertson DO [address] [place] [id number] PCP - General Family Practice 05/04/25
--- OUTSIDE RECORDS SUMMARY | 2025-05-21 04:39 | XMS_ITS | Encounter Summary ---
Author Organization [facility] Address [address] [place] [address] Care Team Providers Care Glassware Verifier Name Role Phone HiralLester milton Karen [place] Primary Care Provider [phone]- [phone] Encounter Details Date Type Department Care Team (Late st Contact Info) Description 05/01/2025 Results Follow-Up Special[facility] Plastic & Hand Surgery 401 [facility] 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
--- OUTSIDE RECORDS SUMMARY | 2025-05-21 04:39 | XMS_ITS | Encounter Summary ---
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
--- OUTSIDE RECORDS SUMMARY | 2025-05-21 04:39 | XMS_ITS | Encounter Summary ---
Author Organization [facility] Address [address], [place] [address] Care Team Providers Care Supply Planner Name Role Phone Lester Robertson DO Primary Care Provider +1- [phone] Encounter Details Date Type Department Care Team (Latest Contact Info) Description 10/22/2014 Correspondence Infectious Disease at [address] [id number] Crystal Pickens, LUCITA [address] [address] [facility] Social History Tobacco Use Types Packs/Day Years Used Date Smoking Tobacco: Never Alcohol Use Standard Drinks/Week Comments No 0 (1 standard drink = 0.6 oz pur e alcohol) Sex and Gender Information Value Date Recorded Sex Assigned at Not on file Legal Sex Male 4:45 AM CDT Gender Identity Not on file Sexual Orientation Not on file documented as of this encounter Plan of Treatment Not on file documented as of this encounter Visit Diagnoses Not on filedocumented in this encounter Additional Health Concerns 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
--- OUTSIDE RECORDS SUMMARY | 2025-05-21 04:39 | XMS_ITS | Encounter Summary ---
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
--- OUTSIDE RECORDS SUMMARY | 2025-05-21 04:39 | XMS_ITS | Encounter Summary ---
Author Organization [employer] Address [address] [place] [address] Care Team Providers Care Air And Water Filler Name Role Phone Hiralkarine Lester Karen US Primary Care Provider +1- [phone] Encounter Details Date Type Department Care Team (Late st Contact Info) Description 06/04/2018 Correspondence Specialty Center 401 Surgery Clinic 401 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
--- OUTSIDE RECORDS SUMMARY | 2025-05-21 04:39 | XMS_ITS | Encounter Summary ---
Author Organization [facility] Address [address] [place] [address] Care Team Providers Care Public Safety Teacher Name Role Phone Lester Robertson DO Primary Care Provider [phone]- [phone] Encounter Details Date Type Department Care Team (Late st Contact Info) Description 03/12/2016 Scanned History External to Transferred Record, Provider [facility] Social History Tobacco Use Types Packs/Day Years Used Date Smoking Tobacco: Some Days Cigars Smokeless Tobacco: Never Comments:marajuana on and of f Alcohol Use Standard Drinks/Week Comments No 0 [...] documented as of this encounter Care Teams Public Safety Teacher Relationship Specialty Start Date End Date Lester Robertson DO [address] [place] [address] PCP - General Family Practice 05/04/25 documented as of this encounter
--- OUTSIDE RECORDS SUMMARY | 2025-05-21 04:39 | XMS_ITS | Clinical Summary ---
Author Organization [facility] General Compression Address [address] [facility] [place] [address] Care Team Providers Care Timber Inspector Name Role Phone Drew Coleman MD Primary Care Provider [phone] Source Comments [facility],non-owned Affiliates and Associated Physician Practices is amultiple site organization consisting of ambulatory clinics and hospital sitesin [place], [place], [place] and [place]. This disclosure is being madepursuant to the Care Everywhere program and may not contain all information available regarding this patient. Last updated 18.[facility] Allergies No known active allergies Medications * Be aware that medications may not be up to date on this document. Alwaysverify current medications with the patient. Emtricitab-Rilp ivir-Tenofov AF (ODEFSEY PO) Active pseudoephedrine (SUDAFED) 30 MG tablet Take 30 mg by mouth every 4 hours as needed for Nasal Congestion Active Social History Tobacco Use Types Packs/Day Years Used Date Smoking Tobacco: Never Smokeless Tobacco: Never Alcohol Use Standard Drinks/Week Comments Yes 0 (1 standard drink = 0.6 oz pur e alcohol) Occasional Sex and Gender Information Value Date Recorded Sex Assigned at Not on file Legal Sex Male 7:01 PM GRAIN TRIMMER Gender Identity Not on file Sexual Orientation Not on file Last Filed Vital Signs Vital Sign Reading Time Taken Comments Blood Pressure 133/89 05/03/2020 8:31 PM CDT Pulse 73 05/03/2020 8:31 PM CDT Temperature 36.7 C (98.1 F) 05/03/2020 8:31 PM CDT Respiratory Rate 16 05/03/2020 8:31 PM CDT Oxygen Saturation 99% 05/03/2020 8:31 PM CDT Inhaled Oxygen Concentration - - Weight 72.4 kg (159 lb 11.2 oz) 05/03/2020 8:31 PM CDT Height 170.2 cm (5' 7) 05/03/2020 8:31 PM CDT Body Mass Index 25.01 05/03/2020 8:31 PM CDT Plan of Treatment Health Maintenance Due Date Last Done Comments HIV SCREENING 2001 HEPATITIS C SCREENING 10/29/2004 DTAP/TDAP/TD VACCINES (1 - Tdap) 2005 HEPATITIS B VACCINE (1 of 3 - 19+ 3-dose series) 2005 HPV VACCINE (1 - 3-dose SCDM series) 2013 DEPRESSION SCREENING 09/07/2024 COVID-19 VACCINE (1 - 2023-2 5 season) 2025 INFLUENZA VACCINE (#1) 2025 6, 05/25/2014 ZOSTER VACCINE (1 of 2) 2036 HIB VACCINE Aged Out No longer eligi ble based on patient's age to complete this topic MENINGOCOCCAL (Group B) VACCINE SHARED DECISION-MAKING Aged Out No longer eligible based on patient's age to complete this topic MENINGOCOCCAL GROUPS A/C/Y/W VACCINE Aged Out No longer eligible b ased on patient's age to complete this topic PNEUMOCOCCAL VACCINE Aged Out No long er eligible based on patient's age to complete this topic [place] [address] [facility] Care Teams Timber Inspector Relationship Specialty Start Date End Date Drew Coleman MD [address] [place] [id number] PCP - General 02/16/12
--- OUTSIDE RECORDS SUMMARY | 2025-05-21 04:39 | XMS_ITS | Clinical Summary ---
Author Organization [facility] Address [address] [place] [address] Care Team Providers Care Animal Rides Manager Name Role Phone Unavailable Primary Care Provider Unavailabl e Social History Tobacco Use Types Packs/Day Years Used Date Smoking Tobacco: Never Assessed Sex and Gender Information Value Date Recorded Sex Assigned at Not on file Legal Sex Male 7:50 PM CDT Gender Identity Not on file Sexual Orientation Not on file Plan of Treatment Health Maintenance Due Date Last Done Comments Annual Physical 1989 Hepatitis C 2004 DTaP, Tdap and Td Vaccines ( 1 - Tdap) 2005 Hepatitis B Vaccines (1 of 3 - 19+ 3-dose series) 2005 HPV Vaccines (1 - 3-dose SCD M series) 2013 COVID-19 Vaccine ( - 2023-2 5 season) 2025 Meningococcal B Vaccine Aged Out No l onger eligible based on patient's age to complete this topic Meningococcal Vaccine Aged Out No shaw carlyle eligible based on patient's age to complete this topic Pneumococcal Vaccine: Pediat rics (0 to 5 Years) and At-Risk Patients (6 to 49 Years) Aged Out No longer eligible b ased on patient's age to complete this topic RSV Immunizations Under 20 Months Aged Out No longer eligible based on patient's age to complete this topic
--- OUTSIDE RECORDS SUMMARY | 2025-05-21 04:39 | XMS_ITS | Encounter Summary ---
Author Organization [facility] Address [address] [place] [address] Care Team Providers Care Shipping Support Name Role Phone Lester Robertson DO Primary Care Provider [phone]- [phone] Encounter Details Date Type Department Care Team (Late st Contact Info) Description 10/08/2015 Emergency Room External to [facility], Provider SORE THROAT FEVER Social History Tobacco Use Types Packs/Day Years [...] documented as of this encounter Care Teams Shipping Support Relationship Specialty Start Date End Date Lester Robertson DO [address] [place] [address] PCP - General Family Practice 05/04/25 documented as of this encounter
--- OUTSIDE RECORDS SUMMARY | 2025-05-21 04:39 | XMS_ITS | Encounter Summary ---
Author Organization [facility] Address [address] [place] [address] Care Team Providers Care Dehydrator Name Role Phone Lester Robertson DO Primary Care Provider [phone]- [phone] Encounter Details Date Type Department Care Team (Late st Contact Info) Description 03/09/2016 Scanned History External to Transferred Record, Provider [facility] Social History Tobacco Use Types Packs/Day Years [...] documented as of this encounter Care Teams Dehydrator Relationship Specialty Start Date End Date Lester Robertson DO [address] [place] [address] PCP - General Family Practice 05/04/25 documented as of this encounter
--- OUTSIDE RECORDS SUMMARY | 2025-05-21 04:39 | XMS_ITS | Encounter Summary ---
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
--- OUTSIDE RECORDS SUMMARY | 2025-05-21 04:39 | XMS_ITS | Encounter Summary ---
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
--- OUTSIDE RECORDS SUMMARY | 2025-05-21 04:39 | XMS_ITS | Encounter Summary ---
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
[2025-05-21 05:01] VITALS: BP 124/80; PULSE 56; RESP 18; O2SAT 99
== END 2025-05-21 05:01 | disposition home or self-care (01) ==
LOC: ANHED 04:37
PROVIDERS: Emergency Provider Emergency Medicine
DX: L73.9 Follicular disorder, unspecified (principal)
CPT/HCPCS: 99283